=== PATIENT | female | born 1985 | race Caucasian/White ===

== ENCOUNTER 2016-08-25 11:20 | Emergency (ER) | payer OTHER ==
[2016-08-25 12:46] LABS: BASO # 0.1 K/uL (0.0-0.2); BASO % 1.9 % (0.0-2.0); EOS # 0.2 K/uL (0.0-0.7); EOS % 3.3 % (0.0-4.0); HEMATOCRIT 31.6 % (34.0-47.0); LYMPH % 27.8 % (20.0-40.0); MEAN CELL VOLUME 80.3 fL (81.0-99.0); MEAN CORPUSCULAR HEMOGLOBIN 24.8 pg (27.0-31.0); MEAN CORPUSCULAR HGB CONC 30.9 g/dL (33.0-37.0); MEAN PLATELET VOLUME 9.2 fL (7.2-11.7); MONO # 0.9 K/uL (0.0-0.8); MONO % 12.3 % (0.0-10.0); NRBC % 0.1 % (0.0-2.0); RED CELL DISTRIBUTION WIDTH 17.2 % (11.5-14.5); WHITE BLOOD COUNT 7.2 K/uL (4.8-10.8)
--- NOTE | 2016-08-25 12:47 | C.PDOC ---
History Of Present Illness A 30 y/o female with a Hx of kidney stones, c/o left flank pain that began this morning. Pt denies chest pain, SOB, palpitations, abdominal pain, N/V/D, fever, chills, dysuria, hematuria, urinary incontinence, or any other complaints. Time Seen by Provider: 08/25/16 12:05 Chief Complaint (Nursing): Chest Pain History Per: Patient History/Exam Limitations: no limitations Onset/Duration Of Symptoms: Hrs Current Symptoms Are (Timing): Still Present Severity: Mild Quality: "Pain" Associated Symptoms: denies: Nausea, Diaphoresis Alleviating Factors: None Recent travel outside of the [place]: No Additional History Per: Patient Past Medical History Reviewed: Historical Data, Nursing Documentation, Vital Signs Vital Signs: Last Vital Signs Temp 97.9 F 08/25/16 13:22 Pulse 79 08/25/16 14:53 Resp 16 08/25/16 14:53 BP 118/87 08/25/16 14:53 Pulse Ox 98 08/25/16 14:53 - Medical History PMH: HTN, Kidney Stones Surgical History: - [facility] Procedures LOW CERVICAL (08/22/13) Family History: States: Unknown Family Hx - Social History Hx Tobacco Use: No Hx Alcohol Use: No Hx Substance Use: No - Immunization History Hx Tetanus Toxoid Vaccination: Yes Hx Influenza Vaccination: No Hx Pneumococcal Vaccination: Yes Review Of Systems Except As Marked, All Systems Reviewed And Found Negative. Constitutional: Negative for: Fever, Chills Cardiovascular: Negative for: Chest Pain, Palpitations Respiratory: Negative for: Shortness of Breath Gastrointestinal: Negative for: Nausea, Vomiting, Abdominal Pain, Diarrhea Genitourinary: Negative for: Dysuria, Incontinence, Hematuria Musculoskeletal: Positive for: Back Pain (Left flank pain) Physical Exam - Physical Exam Appears: Well, Non-toxic, No Acute Distress Skin: Warm, Dry Head: Atraumatic, Normacephalic Eye(s): bilateral: Normal Inspection Oral Mucosa: Moist Chest: Symmetrical Cardiovascular: Rhythm Regular, No Murmur Respiratory: Normal Breath Sounds, No Accessory Muscle Use, No Rales, No Rhonchi , No Wheezing Gastrointestinal/Abdominal: Soft, No Tenderness Back: CVA Tenderness (Left CVA tenderness) Neurological/Psych: Oriented x3, Normal Speech, Normal Cognition, Other (No focal deficit) Gait: Steady ED Course And Treatment - Laboratory Results Result Diagrams: 08/25/16 12:37 08/25/16 12:37 O2 Sat by Pulse Oximetry: 100 (RA) Pulse Ox Interpretation: Normal Medical Decision Making Medical Decision Making: Impression: A 30 y/o female c/o left flank pain that began this morning Plans: -CT Abd/Pel w/o -Blood labs -UA -Reassess Disposition - Disposition Referrals: Johnny Cedeno MD [Staff Provider] - Disposition: HOME/ ROUTINE Disposition Time: 14:00 Condition: IMPROVED Additional Instructions: Thank you for letting us take care of you today. Your provider was Dr. Chandler. You were treated for kidney stones. The emergency medical care you received today was directed at your acute symptoms. If you were prescribed any medication, please fill it and take as directed. It may take several days for your symptoms to resolve. Return to the Emergency Department if your symptoms worsen, do not improve, or if you have any other problems. Please contact your doctor or call one of the physicians/clinics you have been referred to that are listed on the Patient Visit Information form that is included in your discharge packet. Bring any paperwork you were given at discharge with you along with any medications you are taking to your follow up visit. Our treatment cannot replace ongoing medical care by a primary care provider (PCP) outside of the emergency department. Thank you for allowing the [facility] team to be part of your care today. Follow up with your urologist in 2-3 days for re-evaluation. Prescriptions: Ibuprofen [Motrin] 600 mg PO Q6 PRN #20 tab PRN Reason: Pain, Moderate (4-7) Instructions: Kidney Stones (ED), How to Strain Your Urine (ED) - Clinical Impression Clinical Impression: Kidney stone - Scribe Statement The provider has reviewed the documentation as recorded by the Scribe Oren gillespie All medical record entries made by the Scribe were at my direction and personally dictated by me. I have reviewed the chart and agree that the record accurately reflects my personal performance of the history, physical exam, medical decision making, and the department course for this patient. I have also personally directed, reviewed, and agree with the discharge instructions and disposition.
[2016-08-25 12:51] LABS: RBC URINE 430 /hpf (0-3); URINE BILIRUBIN NEGATIVE (NEGATIVE); URINE BLOOD 3+ (NEGATIVE); URINE COLOR Yellow (YELLOW); URINE GLUCOSE (UA) NORMAL (Normal); URINE KETONE NEGATIVE (NEGATIVE); URINE LEUKOCYTE ESTERASE NEG Leu/uL (Negative); URINE PROTEIN NEGATIVE (NEGATIVE); URINE UROBILINOGEN NORMAL mg/dL (0.2-1.0); WBC URINE 4 /hpf (0-5)
[2016-08-25 12:59] LABS: CHLORIDE 104 mmol/L (98-107); POTASSIUM 3.5 mmol/L (3.6-5.2); SODIUM 138 mmol/L (132-148)
[2016-08-25 13:02] LABS: ALKALINE PHOSPHATASE 53 U/L (38-126); ALT/SGPT 24 U/L (9-52); AST/SGOT 28 U/L (14-36); BILIRUBIN,TOTAL 0.4 mg/dL (0.2-1.3); BLOOD UREA NITROGEN 9 mg/dL (7-17); CALCIUM 8.6 mg/dl (8.6-10.4); CARBON DIOXIDE 24 mmol/L (22-30); GFR AFRICAN-AMERICAN > 60; GLUCOSE,RANDOM 93 mg/dL (65-105); TOTAL PROTEIN 7.5 g/dL (6.3-8.3)
[2016-08-25 13:22] VITALS: RESP 16; TEMP 97.9
--- NOTE | 2016-08-25 14:34 | CT ---
PROCEDURE: CT abdomen and pelvis dated 08/25/2016 HISTORY: Left flank pain COMPARISON: Comparison made with prior study 03/05/2016 TECHNIQUE: Contiguous helical/transaxial images of the abdomen and pelvis. Oral contrast was administered. No IV contrast given. Coronal and Sagittal reformats generated. Radiation dose: Total exam DLP = 331.44 mGy-cm. This CT exam was performed using one or more of the following dose reduction techniques: Automated exposure control, adjustment of the mA and/or kV according to patient size, and/or use of iterative reconstruction technique. . FINDINGS: LOWER THORAX: The lung bases are clear. No infiltrate effusion or basilar pneumothorax. Heart size within range of normal. There appears to be a very tiny hiatal hernia. LIVER: The liver exhibits normal size measuring approximately 15.7 cm in CC dimension. No obvious hepatic mass or collection seen on this noncontrast study. GALLBLADDER AND BILE DUCTS: Gallbladder is incompletely distended. . No obvious intraluminal gallbladder calculi seen. PANCREAS: Appears grossly unremarkable so far as can be seen. Note that the pancreas is poorly delineated due to the lack of circulating intravenous contrast material and adjacent opacified bowel. No gross pancreatic ductal dilatation so far as can be seen. SPLEEN: Spleen exhibits normal size and attenuation pattern. ADRENALS: There are no adrenal lesions. KIDNEYS AND URETERS: Eft kidney is enlarged and somewhat lobulated possibly malrotated. Few tiny bilateral cysts of with of visible on prior studies are not appreciated on this exam due to the lack of circulating intravenous contrast material. Multiple calculi scattered throughout the right renal collecting system ;. And another punctate calcification lateral aspect mid to lower pole on axial image number 74 2 mm posterior cortical calculus upper pole moiety axial image 58 punctate calcification lower pole axial image number 81 2 adjacent calculi upper pole measuring 3.7 and 2.5 best seen on axial series 3, image number 62 ; Punctate the calcification anteromedial upper midpole right kidney image 64 and additional 2.6 mm calculus posterior upper/midpole image number 66 2 in the midpole axial image number 73 measuring 4.1mm 3.5mm and 3.1 mm and 3 additional calculi lower pole measuring 2.5 axial image 81, 1.7mm axial image 82, and 2.8mm axial image number 82 BLADDER: The urinary bladder is physiologically distended. There is punctate calcifications seen along in the region of the expected location of distal left ureter measuring approximately 2.6 mm best seen on axial image number 139 and another tiny calcification which appears to be closer to the left lateral margin of the uterus measuring approximately 2.4 mm seen on axial image number 147 correlation with urinalysis suggested as the possibility of a small distal ureteral calculus cannot be excluded on this exam. REPRODUCTIVE: . Uterus appears grossly unremarkable. APPENDIX: . The appendix is not seen with any certainty on this exam the was visible and appeared unremarkable on the prior study. BOWEL: Evaluation of the bowel is limited due to the lack of oral contrast material. . The stomach is incompletely distended which presumably accounts for thick-walled appearance. Visualized loops of small bowel exhibit normal contour and caliber. No evidence acute mechanical small bowel obstruction. Moderate amount of stool seen throughout the colon suggesting mild fecal retention. PERITONEUM: Unremarkable. No fluid collection. No free air. LYMPH NODES: Unremarkable. No enlarged lymph nodes. VASCULATURE: Unremarkable. No aortic aneurysm. BONES: Osseous structures appear grossly intact. OTHER FINDINGS: None. IMPRESSION: Impression: Somewhat enlarged so that an lobulated left kidney with the several small calculi scattered throughout the mid and lower pole as above. There are small calcifications seen in the left aspect of the pelvis and 2 of which are near where the expected location of distal ureter would be. The possibility of a distal new calculus not excluded. Correlation with urinalysis. No definitive evidence of significant left-sided hydronephrosis. Multiple right renal calculi. See above discussion for additional details and findings. Findings discussed with Dr. Craig at approximately 1:55 p.m. with written down and read back verification.
[2016-08-25 14:54] VITALS: BP 118/87; PULSE 79
[2016-08-25 18:05] VITALS: O2SAT 100
== END 2016-08-25 14:53 | disposition home or self-care (01) ==
LOC: C.ER 11:20
DX: N20.0 Calculus of kidney (principal)

== ENCOUNTER 2017-02-26 12:43 | Emergency (ER) | payer OTHER ==
[2017-02-26 12:52] VITALS: RESP 18; O2SAT 100
[2017-02-26] MEDS ORDERED: Lidocaine 1%/Epinephrine 1:100000 30 ml vial IJ STA (13:36)
[2017-02-26] MEDS ORDERED: Epinephrine /Lidocaine HCL 1:100,000/2% 30 ml INJ ONE (13:43)
[2017-02-26] MEDS ORDERED: Lidocaine 2% w Epi 1:100,000 Inj IJ ONE (13:43)
[2017-02-26] MEDS ORDERED: Bacitracin 500 Units/gm Oint Foilpak UD TOP ONE (14:18)
--- NOTE | 2017-02-26 14:21 | C.PDOC ---
History Of Present Illness HaydeVenancio Chacon is a 31 year old female, with no past medical history, who presents to the emergency department for a laceration on right eyebrow onset prior to arrival. Patient states the "supervisor picking crew" sign at work fell and hit her in the forehead. She denies any other medical complaints. PMD: None provided. Time Seen by Provider: 02/26/17 12:55 Chief Complaint (Nursing): Abnormal Skin Integrity History Per: Patient History/Exam Limitations: no limitations Onset/Duration Of Symptoms: Hrs (prior to arrival) Current Symptoms Are (Timing): Still Present Location Of Injury: Right: Face (right eyebrow) Quality Of Symptoms: Painful Past Medical History Reviewed: Historical Data, Nursing Documentation, Vital Signs Vital Signs: Last Vital Signs Temp 98 F 02/26/17 14:36 Pulse 80 02/26/17 14:36 Resp 18 02/26/17 14:36 BP 144/86 02/26/17 14:36 Pulse Ox 100 02/26/17 14:51 - Medical History PMH: HTN, Kidney Stones, Chronic Kidney Disease Surgical History: - [facility] Procedures LOW CERVICAL (08/22/13) Family History: States: Unknown Family Hx - Social History Hx Tobacco Use: No Hx Alcohol Use: No Hx Substance Use: No - Immunization History Hx Tetanus Toxoid Vaccination: No Hx Influenza Vaccination: No Hx Pneumococcal Vaccination: Yes Review Of Systems Except As Marked, All Systems Reviewed And Found Negative. Skin: Positive for: Other (right eyebrow laceration) Physical Exam - Physical Exam Appears: Well, No Acute Distress Skin: Normal Color, Warm, Dry Head: Atraumatic, Normacephalic, Other (4cm stellate laceration involving forehead, right above the right eyebrow. No gross step-off.) Eye(s): bilateral: Normal Inspection, EOMI Neck: Normal, Normal ROM, Supple Cardiovascular: Rhythm Regular Respiratory: Normal Breath Sounds, No Accessory Muscle Use Gastrointestinal/Abdominal: Normal Exam, Soft, No Tenderness Back: Normal Inspection, No CVA Tenderness Extremity: Normal ROM, No Deformity, No Swelling Neurological/Psych: Oriented x3, Normal Speech ED Course And Treatment O2 Sat by Pulse Oximetry: 100 (RA) Pulse Ox Interpretation: Normal Procedure: Wound Repair - Procedure Procedure: Wound Repair: Laceration repair - Performed by Performed by: Attending Physician - Indications Indication(s):: Laceration - Location Location:: Right, Eyebrow Dimensions Length cm: 4 cm - Anesthetic Technique Anesthetic Technique: Intravenous pain meds Local/Regional Anesthetic:: Lidocaine 2% w/epi - Debris Debris:: None - Irrigated Irrigated with ml of normal saline: 500 ml - Complexity Complexity:: Simple (one layer) - Wound repair method Sutures:: # (x5 5.0, x4 6.0 ), Type (prolene ) - Patient tolerated procedure Patient Tolerated Procedure:: Well Medical Decision Making Medical Decision Making: Initial Impression: Right forehead laceration Initial Plan: --Tetanus 0.5 ml IM --Bacitracin 1 ea --Lidocaine 10 ml Inj --reevaluation --area properly sterilized and anesthetized with 2% lidocaine w/ epi and irrigated with 500ml of normal saline. Used sterile prep x6 5.0 and x4 6.0 prolene sutured placed with good approximation. Bacitracin applied, tetanus administered. Patient tolerated procedure well with no complications. Diagnosis : facial laceration. --Wound check in x2 days and suture removal in x5 days. Disposition Counseled Patient/Family Regarding: Diagnosis, Need For Followup - Disposition Disposition: HOME/ ROUTINE Disposition Time: 14:19 Condition: IMPROVED Additional Instructions: follow up in 2 days for wound check and suture removal in 5 days apply bacitracin twice daily warm water and soap to clean keep dry for 24 hours return to ER if symptoms progress, increase redness or swelling Instructions: Laceration (ED), Facial Laceration (ED) Forms: [facility] (Arabic), Gen Discharge Inst Turkish, [employer] (Turkish) Print Language: YORUBA - Clinical Impression Clinical Impression: Laceration of forehead - Scribe Statement Sundar Sarmiento Provider Attestation: All medical record entries made by the Adonisibshanice were at my direction and personally dictated by me. I have reviewed the chart and agree that the record accurately reflects my personal performance of the history, physical exam, medical decision making, and the department course for this patient. I have also personally directed, reviewed, and agree with the discharge instructions and disposition.
[2017-02-26] MEDS ORDERED: Bacitracin 500 Units/gm Oint Foilpak UD ONE (14:29)
[2017-02-26 14:37] VITALS: BP 144/86; PULSE 80; TEMP 98
== END 2017-02-26 14:36 | disposition home or self-care (01) ==
LOC: C.ER 12:43
DX: S01.81XA Laceration without foreign body of other part of head, initial encounter (principal); W20.8XXA Other cause of strike by thrown, projected or falling object, initial encounter; Y92.89 Other specified places as the place of occurrence of the external cause; Y99.0 Civilian activity done for income or pay; Z23 Encounter for immunization

== ENCOUNTER 2017-03-03 13:19 | Emergency (ER) | payer OTHER ==
[2017-03-03 13:27] VITALS: TEMP 97.8
--- NOTE | 2017-03-03 14:48 | C.PDOC ---
History Of Present Illness FOR SUTURE REMOVAL. S/P LAC REPAIR 02/26. PS HEALING WELL, NO NEW SX SINCE PRIOR VISIT. EXAM NONTOXIC SKIN HEALING SKIN LAC R EYEBROW. NO CELLULITIS, TEND, DC PROC SUTURE REMOVAL 11 BLADE WO DIFF. PT TOLERATED WELL Time Seen by Provider: 03/03/17 14:16 Chief Complaint (Nursing): Suture/Staple Removal History Per: Patient History/Exam Limitations: no limitations Onset/Duration Of Symptoms: Days Ago Past Medical History Reviewed: Historical Data, Nursing Documentation, Vital Signs Vital Signs: Last Vital Signs Temp 97.8 F 03/03/17 13:24 Pulse 68 03/03/17 15:04 Resp 18 03/03/17 15:04 BP 110/68 03/03/17 15:04 Pulse Ox 99 03/03/17 15:04 - Medical History PMH: HTN, Kidney Stones, Chronic Kidney Disease Surgical History: - [facility] Procedures LOW CERVICAL (08/22/13) Family History: States: No Known Family Hx - Social History Hx Tobacco Use: No Hx Alcohol Use: No Hx Substance Use: No - Immunization History Hx Tetanus Toxoid Vaccination: No Hx Influenza Vaccination: No Hx Pneumococcal Vaccination: Yes Review Of Systems Except As Marked, All Systems Reviewed And Found Negative. Constitutional: Negative for: Fever Eyes: Negative for: Pain, Vision Change Gastrointestinal: Negative for: Nausea, Vomiting Physical Exam - Physical Exam Appears: Non-toxic, No Acute Distress Skin: Warm, Dry, No Rash, Other (Healing skin laceration to the right eyebrow. No cellulitis. No tenderness. No discharge.) Head: Atraumatic, Normacephalic Eye(s): bilateral: Normal Inspection, PERRL, EOMI Respiratory: Normal Breath Sounds Extremity: Normal ROM, No Swelling Neurological/Psych: Oriented x3, Normal Speech, Normal Motor ED Course And Treatment O2 Sat by Pulse Oximetry: 100 (RA) Pulse Ox Interpretation: Normal Progress - Data Reviewed Data Reviewed: Old records Disposition Counseled Patient/Family Regarding: Diagnosis, Need For Followup - Disposition Referrals: YOUR,PMD [Other] Disposition: HOME/ ROUTINE Disposition Time: 14:47 Condition: IMPROVED Instructions: Stitches Removal (ED) Forms: [employer] (Italian) - Clinical Impression Clinical Impression: Removal of suture - Scribe Statement The provider has reviewed the documentation as recorded by the Luis Parmar Provider Attestation: All medical record entries made by the Luis were at my direction and personally dictated by me. I have reviewed the chart and agree that the record accurately reflects my personal performance of the history, physical exam, medical decision making, and the department course for this patient. I have also personally directed, reviewed, and agree with the discharge instructions and disposition.
[2017-03-03 15:05] VITALS: BP 110/68; PULSE 68; RESP 18
[2017-03-03 16:06] VITALS: O2SAT 100
== END 2017-03-03 15:05 | disposition home or self-care (01) ==
LOC: C.ER 13:19
DX: Z48.02 Encounter for removal of sutures (principal)

== ENCOUNTER 2017-07-19 11:31 | Emergency (ER) | payer OTHER ==
[2017-07-19 11:55] VITALS: O2SAT 100
[2017-07-19 12:25] LABS: HCG,QUALITATIVE URINE NEGATIVE (NEGATIVE)
[2017-07-19 12:35] LABS: SQUAMOUS EPITHIAL 2 /hpf (0-5); URINE BACTERIA FEW (<OCC); URINE BILIRUBIN NEGATIVE (NEGATIVE); URINE BLOOD 2+ (NEGATIVE); URINE CLARITY Hazy (Clear); URINE COLOR Yellow (YELLOW); URINE GLUCOSE (UA) NORMAL (Normal); URINE LEUKOCYTE ESTERASE 3+ Leu/uL (Negative); URINE PROTEIN 1+ mg/dL (NEGATIVE); URINE UROBILINOGEN NORMAL mg/dL (0.2-1.0)
--- NOTE | 2017-07-19 12:44 | C.PDOC ---
History Of Present Illness 31 year old female, presents to ER with complaints of fever, chills, and bodyaches since last night. Patient also reports right flank pain but denies any dysuria. She denies any nausea, vomiting, diarrhea or constipation. Patient has no other medical complaints. PMD: None Time Seen by Provider: 07/19/17 12:01 Chief Complaint (Nursing): Flu-like Symptoms History Per: Patient History/Exam Limitations: no limitations Onset/Duration Of Symptoms: Days (1) Current Symptoms Are (Timing): Still Present Associated Symptoms: Fever, Chills, Myalgias Additional History Per: Patient Past Medical History Reviewed: Historical Data, Nursing Documentation, Vital Signs Vital Signs: Last Vital Signs Temp 100.1 F H 07/19/17 12:49 Pulse 115 H 07/19/17 12:49 Resp 20 07/19/17 12:49 BP 124/77 07/19/17 12:49 Pulse Ox 100 07/19/17 13:45 - Medical History PMH: Anemia, HTN, Kidney Stones, Chronic Kidney Disease Surgical History: - [facility] Procedures LOW CERVICAL (08/22/13) Family History: States: No Known Family Hx, Unknown Family Hx - Social History Hx Tobacco Use: No Hx Alcohol Use: No Hx Substance Use: No - Immunization History Hx Tetanus Toxoid Vaccination: Yes Hx Influenza Vaccination: No Hx Pneumococcal Vaccination: No Review Of Systems Except As Marked, All Systems Reviewed And Found Negative. Constitutional: Positive for: Fever, Chills, Other (bodyaches) Gastrointestinal: Positive for: Other (right flank pain) Genitourinary: Negative for: Dysuria Physical Exam - Physical Exam Appears: Non-toxic, No Acute Distress Skin: Normal Color, Warm, Dry, No Rash Head: Atraumatic, Normacephalic Eye(s): bilateral: Normal Inspection, PERRL, EOMI Neck: Normal ROM, Supple Chest: Symmetrical Cardiovascular: Rhythm Regular, No Murmur Respiratory: Normal Breath Sounds, No Wheezing Gastrointestinal/Abdominal: Normal Exam, Bowel Sounds, Soft, No Tenderness, No Distention, No Guarding, No Hernia Back: Normal Inspection, No CVA Tenderness Extremity: Bilateral: Atraumatic, Normal Color And Temperature, Normal ROM Neurological/Psych: Oriented x3, Normal Speech Gait: Steady ED Course And Treatment O2 Sat by Pulse Oximetry: 100 (RA) Pulse Ox Interpretation: Normal Medical Decision Making Medical Decision Making: Impression: Fever Plan: * UA, UCG * Influenza Progress: UA shows positive nitrates, WBC and LE. Will send urine culture. Patient further treated with Cipro PO. On re-eval, patient is laying supine covered with blanket. I explained urine results. Her abdomen remains soft. Recommend she drink fluids and will be discharged with Rx Cipro. Patient feels comfortable going home and will be discharged. Patient given follow up instructions. Instructed to return to ER if symptoms worsen or new symptoms arise. Disposition Counseled Patient/Family Regarding: Diagnosis, Need For Followup, Rx Given - Disposition Referrals: [facility] [Outside] [facility] [Outside] [facility] [Outside] Disposition: HOME/ ROUTINE Disposition Time: 12:44 Condition: GOOD Additional Instructions: Take antibiotic twice daily and be sure to finish taking all of antibiotic. Drink plenty of fluids. If urine culture was performed, call back for results in 2-3 days for results to confirm antibiotic is treating UTI well. You may call [phone]. Follow up with your primary medical doctor or clinic in 2-5 days for further evaluation. Return to the emergency department at any time if symptoms persist or worsen. Prescriptions: Ciprofloxacin [Cipro] 1 tab PO BID #14 tab Ibuprofen [Motrin] 1 tab PO TID PRN #30 tab PRN Reason: Pain Instructions: Urinary Tract Infection, Adult (DC) Forms: [facility] (East [place]orese) - POA Present On Arrival: None - Clinical Impression Clinical Impression: UTI (urinary tract infection) - PA / PHARMACY SERVICES REPRESENTATIVE / Resident Statement MD/DO has reviewed & agrees with the documentation as recorded. - Scribe Statement The provider has reviewed the documentation as recorded by the Scribe (Cee Evangelista) Provider Attestation: All medical record entries made by the Adonisibe were at my direction and personally dictated by me. I have reviewed the chart and agree that the record accurately reflects my personal performance of the history, physical exam, medical decision making, and the department course for this patient. I have also personally directed, reviewed, and agree with the discharge instructions and disposition.
[2017-07-19 12:50] VITALS: BP 124/77; PULSE 115; RESP 20; TEMP 100.1
== END 2017-07-19 13:02 | disposition home or self-care (01) ==
LOC: C.ER 11:31
DX: N39.0 Urinary tract infection, site not specified (principal)

== ENCOUNTER 2017-07-21 15:12 | Inpatient (IN) | payer OTHER ==
[2017-07-21] MEDS ORDERED: Sodium Chloride 0.9% 1,000 ML IV ONE (16:14)
[2017-07-21] MEDS ORDERED: Sodium Chloride 0.9% 0 ML ONE (16:29)
[2017-07-21] MEDS ORDERED: Sodium Chloride 0.9% 1,000 ML ONE (16:39)
[2017-07-21 16:54] LABS: BASO # 0.1 K/uL (0.0-0.2); BASO % 0.6 % (0.0-2.0); EOS # 0.1 K/uL (0.0-0.7); EOS % 0.7 % (0.0-4.0); HEMOGLOBIN 10.2 g/dL (11.0-16.0); LYMPH # 1.1 K/uL (1.0-4.3); LYMPH % 6.8 % (20.0-40.0); MEAN CELL VOLUME 80.5 fL (81.0-99.0); MEAN CORPUSCULAR HEMOGLOBIN 26.3 pg (27.0-31.0); MEAN CORPUSCULAR HGB CONC 32.7 g/dL (33.0-37.0); MEAN PLATELET VOLUME 9.1 fL (7.2-11.7); MONO # 2.3 K/uL (0.0-0.8); MONO % 13.7 % (0.0-10.0); NEUT # 13.1 K/uL (1.8-7.0); NEUT % 78.2 % (50.0-75.0); PLATELET COUNT 313 K/uL (130-400); RBC 3.87 Mil/uL (3.80-5.20); RED CELL DISTRIBUTION WIDTH 18.7 % (11.5-14.5); WHITE BLOOD COUNT 16.7 K/uL (4.8-10.8)
[2017-07-21 16:57] LABS: SQUAMOUS EPITHIAL 2 /hpf (0-5); URINE BACTERIA FEW (<OCC); URINE BILIRUBIN NEGATIVE (NEGATIVE); URINE BLOOD 2+ (NEGATIVE); URINE CLARITY Hazy (Clear); URINE COLOR Yellow (YELLOW); URINE GLUCOSE (UA) NORMAL (Normal); URINE LEUKOCYTE ESTERASE 3+ Leu/uL (Negative); URINE PROTEIN 2+ mg/dL (NEGATIVE); URINE UROBILINOGEN NORMAL mg/dL (0.2-1.0)
[2017-07-21] MEDS ORDERED: Meropenem 1 GM in Sodium Chloride 0.9% 100 ML IVPB SCH (17:00)
[2017-07-21 17:03] LABS: HCG,QUALITATIVE URINE NEGATIVE (NEGATIVE)
[2017-07-21 17:06] LABS: CALCIUM 9.3 mg/dl (8.6-10.4)
--- NOTE | 2017-07-21 17:06 | C.PDOC ---
History Of Present Illness 31 y/o female with history of kidney stones presents to ED with c/o of persistent right flank pain, fever and chills. Patient was seen at ED 2 days ago and was called earlier today for +blood culture for ESBL and was told to come back to ED for IV antibiotics. Patient states she has been compliant with antibiotics given 2 days ago but still has symptoms and developed fever yesterday. Patient denies vaginal discharge, dysuria, vaginal bleeding or any other complaints at this time. Time Seen by Provider: 07/21/17 15:47 Chief Complaint (Nursing): Female Genitourinary History Per: Patient History/Exam Limitations: no limitations Onset/Duration Of Symptoms: Days Current Symptoms Are (Timing): Still Present Past Medical History Reviewed: Historical Data, Nursing Documentation, Vital Signs Vital Signs: Last Vital Signs Temp 101.2 F H 07/21/17 18:38 Pulse 95 H 07/21/17 18:38 Resp 17 07/21/17 18:38 BP 121/73 07/21/17 18:38 Pulse Ox 99 07/21/17 18:38 - Medical History PMH: Anemia, HTN, Kidney Stones, Chronic Kidney Disease Surgical History: - [facility] Procedures LOW CERVICAL (08/22/13) Family History: States: No Known Family Hx - Social History Hx Tobacco Use: No Hx Alcohol Use: No Hx Substance Use: No - Immunization History Hx Tetanus Toxoid Vaccination: Yes Hx Influenza Vaccination: No Hx Pneumococcal Vaccination: No Review Of Systems Constitutional: Positive for: Fever, Chills Gastrointestinal: Positive for: Other (flank pain). Negative for: Nausea, Vomiting Genitourinary: Negative for: Dysuria, Hematuria, Vaginal Discharge Musculoskeletal: Negative for: Back Pain Physical Exam - Physical Exam Appears: Non-toxic, No Acute Distress Skin: Warm, Dry, No Rash Head: Atraumatic, Normacephalic Eye(s): bilateral: Normal Inspection Oral Mucosa: Moist Neck: Normal ROM, Supple Cardiovascular: Rhythm Regular Respiratory: Normal Breath Sounds, No Rales, No Rhonchi, No Wheezing Gastrointestinal/Abdominal: Soft, No Tenderness, No Guarding, No Rebound Back: CVA Tenderness (Mild), No Vertebral Tenderness, No Paraspinal Tenderness Neurological/Psych: Oriented x3, Normal Speech, Normal Cognition, Normal Motor, Normal Sensation ED Course And Treatment - Laboratory Results Result Diagrams: 07/21/17 16:51 07/21/17 16:51 O2 Sat by Pulse Oximetry: 100 (RA) Pulse Ox Interpretation: Normal Medical Decision Making Medical Decision Making: Progress: 1757: D/w Dr. Plascencia accepted patient under her service for IV antibiotics with Dr. Jules on consult Disposition Discussed With DrLola: Lia Plascencia Counseled Patient/Family Regarding: Studies Performed, Diagnosis - Disposition Disposition: HOSPITALIZED Disposition Time: 17:57 Condition: STABLE - Clinical Impression Clinical Impression: Pyelonephritis, Infection due to ESBL-producing Escherichia coli - Scribe Statement The provider has reviewed the documentation as recorded by the Scribe Arvind Quarles All medical record entries made by the Scribe were at my direction and personally dictated by me. I have reviewed the chart and agree that the record accurately reflects my personal performance of the history, physical exam, medical decision making, and the department course for this patient. I have also personally directed, reviewed, and agree with the discharge instructions and disposition. Decision To Admit - Pt Status Changed To: Hospital Disposition Of: Inpatient - Admit Certification Admit to Inpatient:: After my assessment, the patient will require hospitalization for at least two midnights. This is because of the severity of symptoms shown, intensity of services needed, and/or the medical risk in this patient being treated as an outpatient. - InPatient: Physician Admission Certification: I certify that this patient requires 2 or more midnights of care for the following reason:: esbl positive e coli infection , requiring IV antibiotics - . Bed Request Type: Regular Patient Diagnosis: Pyelonephritis, Infection due to ESBL-producing Escherichia coli
[2017-07-21 17:58] LABS: BANDS 15 % (0-2); EOSINOPHIL 1 % (0-4); LYMPHOCYTE 7 % (20-40); MONOCYTE 10 % (0-10); MYELOCYTE 1 % (0-0); NEUTROPHIL 66 % (50-75); TOTAL CELLS COUNTED 100
[2017-07-21 17:59] LABS: BURR CELLS SLIGHT; HYPOCHROMIC SLIGHT; PLATELET ESTIMATE NORMAL (NORMAL)
[2017-07-21 18:00] LABS: LARGE PLATELETS PRESENT
[2017-07-21 18:38] LABS: VENOUS BLOOD GAS BASE EXCESS -5.9 mmol/L (0.0-2.0); VENOUS BLOOD GAS PCO2 41 mmHg (40-60); VENOUS BLOOD GAS PO2 25 mm/Hg (30-55)
--- NOTE | 2017-07-21 19:01 | CP.PCM.CON ---
History of Present Illness - History of Present Illness History of Present Illness: admitted with pyelo/ ESBL Urine started Merrem Needs eval 31 y/o female with history of kidney stones presents to ED with c/o of persistent right flank pain, fever and chills. Patient was seen at ED 2 days ago and was called earlier today for +blood culture for ESBL and was told to come back to ED for IV antibiotics. Patient states she has been compliant with antibiotics given 2 days ago but still has symptoms and developed fever yesterday. Patient denies vaginal discharge, dysuria, vaginal bleeding or any other complaints at this time. - Medical History PMH: Anemia, HTN, Kidney Stones, Chronic Kidney Disease Surgical History: Past Patient History - Past Social History Smoking Status: Never Smoked - CARDIAC Hx Hypertension: Yes - RENAL Hx Chronic Kidney Disease: Yes Hx Kidney Stones: Yes - HEMATOLOGICAL/ONCOLOGICAL Hx Anemia: Yes - GENITOURINARY/GYNECOLOGICAL Other/Comment: kidney stones - PSYCHIATRIC Hx Substance Use: No - SURGICAL HISTORY Hx Surgeries: Yes Hx Section: Yes (2x) - ANESTHESIA Hx Anesthesia: Yes Hx Anesthesia Reactions: No Meds Allergies/Adverse Reactions: Allergies Allergy/AdvReac Type Severity Reaction Status Date / Time No Known Allergies Allergy Verified 07/21/17 15:38 - Medications Medications: Current Medications Meropenem 1 gm/ Sodium (Chloride) 100 mls @ 100 mls/hr IVPB Q8H CORINNE PRN Reason: Protocol Last Admin: 07/21/17 17:50 Dose: 100 mls/hr Meropenem 1 gm/ Sodium (Chloride) 100 mls @ 100 mls/hr IVPB Q8 CORINNE PRN Reason: Protocol Results - Vital Signs Recent Vital Signs: Last Vital Signs Temp 101.2 F H 07/21/17 18:38 Pulse 95 H 07/21/17 18:38 Resp 17 07/21/17 18:38 BP 121/73 07/21/17 18:38 Pulse Ox 100 07/21/17 18:49 - Labs Result Diagrams: 07/21/17 16:51 07/21/17 16:51 Labs: Laboratory Results - last 24 hr 07/21/17 07/21/17 07/21/17 16:39 16:51 16:51 WBC 16.7 H D RBC 3.87 Hgb 10.2 L Hct 31.2 L MCV 80.5 L MCH 26.3 L MCHC 32.7 L RDW 18.7 H Plt Count 313 MPV 9.1 Neut % (Auto) 78.2 H Lymph % (Auto) 6.8 L [place] % (Auto) 13.7 H Eos % (Auto) 0.7 Baso % (Auto) 0.6 Neut # (Auto) 13.1 H Lymph # (Auto) 1.1 [place] # (Auto) 2.3 H Eos # (Auto) 0.1 Baso # (Auto) 0.1 Neutrophils % (Manual) 66 Band Neutrophils % 15 H* Lymphocytes % (Manual) 7 L Monocytes % (Manual) 10 Eosinophils % (Manual) 1 Myelocytes % 1 H Platelet Estimate Normal Large Platelets Present Hypochromasia (manual) Slight [place] Cells Slight pO2 VBG pH VBG pCO2 VBG HCO3 VBG Total CO2 VBG O2 Sat (Calc) VBG Base Excess VBG Potassium Glucose Lactate Sodium 142 Potassium 4.1 Chloride 107 Carbon Dioxide 21 L Anion Gap 19 BUN 16 Creatinine 1.3 H Est GFR ( Amer) 58 Est GFR (Non-Af Amer) 48 Random Glucose 90 Calcium 9.3 Venous Blood Potassium Urine Color Yellow Urine Clarity Hazy Urine pH 5.0 Ur Specific [place] 1.013 Urine Protein 2+ H Urine Glucose (UA) Normal Urine Ketones Negative Urine Blood 2+ H Urine Nitrate Negative Urine Bilirubin Negative Urine Urobilinogen Normal Ur Leukocyte Esterase 3+ H Urine WBC (Auto) 59 H Urine RBC (Auto) 26 H Ur Squamous Epith Cells 2 Urine Bacteria Few H Urine HCG, Qual Negative 07/21/17 18:34 WBC RBC Hgb Hct MCV MCH MCHC RDW Plt Count MPV Neut % (Auto) Lymph % (Auto) [place] % (Auto) Eos % (Auto) Baso % (Auto) Neut # (Auto) Lymph # (Auto) [place] # (Auto) Eos # (Auto) Baso # (Auto) Neutrophils % (Manual) Band Neutrophils % Lymphocytes % (Manual) Monocytes % (Manual) Eosinophils % (Manual) Myelocytes % Platelet Estimate Large Platelets Hypochromasia (manual) [place] Cells pO2 25 L VBG pH 7.30 L VBG pCO2 41 VBG HCO3 18.7 VBG Total CO2 21.5 L VBG O2 Sat (Calc) 44.7 VBG Base Excess -5.9 L VBG Potassium 3.0 L Glucose 60 L Lactate 1.8 Sodium 145.0 Potassium Chloride 114.0 H Carbon Dioxide Anion Gap BUN Creatinine Est GFR ( Amer) Est GFR (Non-Af Amer) Random Glucose Calcium Venous Blood Potassium 3.0 L Urine Color Urine Clarity Urine pH Ur Specific [place] Urine Protein Urine Glucose (UA) Urine Ketones Urine Blood Urine Nitrate Urine Bilirubin Urine Urobilinogen Ur Leukocyte Esterase Urine WBC (Auto) Urine RBC (Auto) Ur Squamous Epith Cells Urine Bacteria Urine HCG, Qual
--- NOTE | 2017-07-21 19:02 | CT ---
PROCEDURE: CT Abdomen and Pelvis without intravenous contrast HISTORY: right flank pain COMPARISON: Noncontrast abdomen and pelvis CT 03/22/2017. TECHNIQUE: Helical CT of the abdomen and pelvis was performed without oral or intravenous contrast as per referring physician request. Contrast dose: None Radiation dose: Total exam DLP = 253.67 mGy-cm. This CT exam was performed using one or more of the following dose reduction techniques: Automated exposure control, adjustment of the mA and/or kV according to patient size, and/or use of iterative reconstruction technique. FINDINGS: LOWER THORAX: Unremarkable. LIVER: Unremarkable. No gross lesion or ductal dilatation. GALLBLADDER AND BILE DUCTS: Unremarkable. PANCREAS: Unremarkable. No gross lesion or ductal dilatation. SPLEEN: Unremarkable. ADRENALS: Unremarkable. No mass. KIDNEYS AND URETERS: Mild streaky right perinephric changes are appreciate without definite right hydronephrosis or hydroureter. No radiodense urolithiasis is seen involving the right ureter and has not been expelled into the urinary bladder either. Multiple punctate intrarenal calculi identified at the upper mid lower pole right kidney once again with the largest identified at the midpole posteriorly measuring 3.8 mm greatest dimension. None are seen at the left kidney once again. Consider potential nephritis right kidney or expelled right-sided obstructing calculus including from the urinary bladder. A tiny exophytic focus is seen related to the left kidney midpole laterally, too small to characterize. VASCULATURE: Unremarkable. No aortic aneurysm. BOWEL: Unremarkable. No obstruction. No gross mural thickening. APPENDIX: Normal appendix. PERITONEUM: Unremarkable. No free fluid. No free air. LYMPH NODES: Unremarkable. No enlarged lymph nodes. BLADDER: Unremarkable. REPRODUCTIVE: Unremarkable. BONES: No acute fracture. OTHER FINDINGS: None. IMPRESSION: No definitive hydronephrosis bilaterally although multiple punctate intrarenal calculi are scattered throughout the right kidney once again. Limited right perinephric reaction may indicate infectious or inflammatory nephritis nevertheless and clinical correlation is advised. None is seen at the left. Consider potential expelled obstructing right-sided calculus including from the urinary bladder. A tiny lucency is seen exophytic off the midpole left kidney too small to characterize once again.
[2017-07-21] MEDS ORDERED: Sodium Chloride 0.45% 1,000 ML IV SCH (23:45)
[2017-07-22 00:45] VITALS: BP 116/76; PULSE 83; RESP 20; TEMP 98.3; O2SAT 100
[2017-07-22] MEDS ORDERED: Meropenem 1 GM in Sodium Chloride 0.9% 100 ML IVPB SCH (22:00)
== END 2017-07-22 01:20 | disposition left against medical advice (07) | DRG 323 ==
LOC: C.ER 15:12 → C.5S 17:59 → C.9E 17:59
PROVIDERS: ADMIT Internal Medicine; ATTEND Internal Medicine
DX: N11.1 Chronic obstructive pyelonephritis (principal); N18.9 Chronic kidney disease, unspecified; B96.20 Unspecified Escherichia coli [E. coli] as the cause of diseases classified elsewhere; I12.9 Hypertensive chronic kidney disease with stage 1 through stage 4 chronic kidney disease, or unspecified chronic kidney disease

== ENCOUNTER 2017-07-22 08:26 | Inpatient (IN) | payer OTHER ==
[2017-07-22 08:31] VITALS: BMI 29.2
[2017-07-22 08:37] VITALS: O2SAT 100
[2017-07-22] MEDS ORDERED: Meropenem 1 GM in Sodium Chloride 0.9% 100 ML IVPB STA (08:55)
--- NOTE | 2017-07-22 09:04 | C.PDOC ---
History Of Present Illness Patient is a 31 y/o female who presents to the ED returning to ER for IV antibiotics for pyelonephritis and infected kidney stone. Patient was admitted yesterday for symptoms under Dr. Plascencia and was started on IV antibiotics because urine culture was positive for ESBL E. coli. Patient reports leaving hospital yesterday because her friend who took her to ED was visiting patient from the [place] and could not stay the night, having no other place to stay. Patient admits symptoms improved after first dose of antibiotics yesterday; denies any fever. Time Seen by Provider: 07/22/17 08:29 Chief Complaint (Nursing): Medical Clearance History Per: Patient History/Exam Limitations: no limitations Onset/Duration Of Symptoms: Hrs Current Symptoms Are (Timing): Still Present Reports Recently: Hospitalized (yesterday) Recent travel outside of the [place]: No Past Medical History Reviewed: Historical Data, Nursing Documentation, Vital Signs Vital Signs: Last Vital Signs Temp 97.5 F L 07/22/17 08:35 Pulse 92 H 07/22/17 08:35 Resp 18 07/22/17 08:35 BP 141/83 07/22/17 08:35 Pulse Ox 100 07/22/17 09:04 - Medical History PMH: Anemia, HTN, Kidney Stones, Chronic Kidney Disease Surgical History: - [facility] Procedures LOW CERVICAL (08/22/13) Family History: States: Unknown Family Hx - Social History Hx Tobacco Use: No Hx Alcohol Use: No Hx Substance Use: No - Immunization History Hx Tetanus Toxoid Vaccination: Yes Hx Influenza Vaccination: No Hx Pneumococcal Vaccination: No Review Of Systems Except As Marked, All Systems Reviewed And Found Negative. Genitourinary: Positive for: Other (pyelonephritis, infected kidney stone; positive ESBL E. coli in urine culture) Physical Exam - Physical Exam Appears: Well, Non-toxic, No Acute Distress Skin: Normal Color, Warm, Dry Head: Atraumatic, Normacephalic Eye(s): bilateral: Normal Inspection Oral Mucosa: Moist Chest: Symmetrical Cardiovascular: Rhythm Regular, No Murmur Respiratory: Normal Breath Sounds, No Rales, No Rhonchi, No Wheezing Gastrointestinal/Abdominal: Soft, No Tenderness, No Guarding, No Rebound Back: Normal Inspection, No CVA Tenderness Extremity: Normal ROM (x4), No Tenderness Neurological/Psych: Oriented x3, Normal Speech, Normal Cognition ED Course And Treatment O2 Sat by Pulse Oximetry: 100 Progress Note: Blood work and UA ordered. IV fluids administered. Disposition - Disposition Forms: [facility] (Tajik) - Scribe Statement The provider has reviewed the documentation as recorded by the Scribe Zee Davis All medical record entries made by the Scribe were at my direction and personally dictated by me. I have reviewed the chart and agree that the record accurately reflects my personal performance of the history, physical exam, medical decision making, and the department course for this patient. I have also personally directed, reviewed, and agree with the discharge instructions and disposition.
[2017-07-22 09:28] LABS: BASO # 0.1 K/uL (0.0-0.2); BASO % 0.5 % (0.0-2.0); EOS # 0.1 K/uL (0.0-0.7); EOS % 0.8 % (0.0-4.0); HEMOGLOBIN 10.2 g/dL (11.0-16.0); LYMPH # 0.9 K/uL (1.0-4.3); LYMPH % 8.2 % (20.0-40.0); MEAN CELL VOLUME 80.1 fL (81.0-99.0); MEAN CORPUSCULAR HEMOGLOBIN 26.4 pg (27.0-31.0); MEAN CORPUSCULAR HGB CONC 32.9 g/dL (33.0-37.0); MEAN PLATELET VOLUME 9.4 fL (7.2-11.7); MONO # 1.5 K/uL (0.0-0.8); NEUT # 8.9 K/uL (1.8-7.0); NEUT % 77.5 % (50.0-75.0); PLATELET COUNT 329 K/uL (130-400); RBC 3.87 Mil/uL (3.80-5.20); RED CELL DISTRIBUTION WIDTH 18.5 % (11.5-14.5); WHITE BLOOD COUNT 11.5 K/uL (4.8-10.8)
[2017-07-22 09:35] LABS: SQUAMOUS EPITHIAL 13 /hpf (0-5); URINE BACTERIA RARE (<OCC); URINE BILIRUBIN NEGATIVE (NEGATIVE); URINE BLOOD 1+ (NEGATIVE); URINE CLARITY Clear (Clear); URINE COLOR Yellow (YELLOW); URINE GLUCOSE (UA) NORMAL (Normal); URINE LEUKOCYTE ESTERASE 3+ Leu/uL (Negative); URINE PROTEIN 1+ mg/dL (NEGATIVE); URINE UROBILINOGEN NORMAL mg/dL (0.2-1.0)
[2017-07-22 09:42] LABS: ALB/GLOB RATIO 0.8 (1.0-2.1); ALBUMIN 3.4 g/dL (3.5-5.0); ALT/SGPT 42 U/L (9-52); AST/SGOT 62 U/L (14-36); BLOOD UREA NITROGEN 12 mg/dL (7-17); CALCIUM 9.3 mg/dl (8.6-10.4); GFR AFRICAN-AMERICAN > 60; GFR NON-AFRICAN AMERICAN 58
[2017-07-22 10:04] LABS: ANISOCYTOSIS MODERATE; BANDS 8 % (0-2); BASOPHIL 2 % (0-2); LYMPHOCYTE 8 % (20-40); MONOCYTE 4 % (0-10); NEUTROPHIL 77 % (50-75); PLATELET ESTIMATE NORMAL (NORMAL); REACTIVE LYMPHOCYTES 1 % (0-0); TOTAL CELLS COUNTED 100
[2017-07-22 10:05] LABS: HYPOCHROMIC SLIGHT
[2017-07-22 11:20] VITALS: RESP 20
[2017-07-22 15:49] VITALS: BP 136/72; PULSE 97; TEMP 98.3
--- NOTE | 2017-07-22 17:48 | US ---
PROCEDURE: Ultrasound of the Kidneys HISTORY: pyelonephritis COMPARISON: July 21, 2017. CT abdomen and pelvis. Summary of findings on the comparison examination:.No definitive hydronephrosis bilaterally although multiple punctate intrarenal calculi are scattered throughout the right kidney once again. Limited right perinephric reaction may indicate infectious or inflammatory nephritis nevertheless and clinical correlation is advised. TECHNIQUE: Sonogram of the kidneys. FINDINGS: RIGHT KIDNEY: Measures: 5 x 5.4 x 11.9 cm. Normal in size, contour and echogenicity. 1. Echogenic focus upper pole 3.3 mm. 2. Echogenic focus 7 mm midpole region. 3. Echogenic focus lower pole 3 mm. 4. Echogenic focus mid pole region 4 mm. Incidental finding(s): Three small simple cysts. Lower pole cyst 5 x 8 mm. Adjacent lower pole cyst 6 x 10 mm. Upper pole cyst 5 x 7 mm. LEFT KIDNEY: Measures: 5.9 x 4.6 x 12.9 cm. Normal in size, contour and echogenicity. Multiple (3) echogenic foci none larger than 4 mm scattered throughout the left kidney consistent with nonobstructing calculi. Incidental finding(s): OTHER FINDINGS: None. IMPRESSION: No evidence of obstructive uropathy. Bilateral nephrolithiasis. Additional benign and/or incidental findings described above.
[2017-07-22] MEDS ORDERED: Meropenem 1 GM in Sodium Chloride 0.9% 100 ML IVPB SCH ×2 (18:00→22:00)
--- NOTE | 2017-07-22 20:53 | CP.PCM.CON ---
History of Present Illness - History of Present Illness History of Present Illness: 31 y/o female who presents to the ED returning to ER for IV antibiotics for pyelonephritis and infected kidney stone. Patient was admitted yesterday for symptoms under Dr. Plascencia and was started on IV antibiotics because urine culture was positive for ESBL E. coli. Patient reports leaving hospital yesterday because her friend who took her to ED was visiting patient from the [place] and could not stay the night, having no other place to stay. Patient admits symptoms improved after first dose of antibiotics yesterday; denies any fever. - Medical History PMH: Anemia, HTN, Kidney Stones, Chronic Kidney Disease Review of Systems - Review of Systems All systems: reviewed and no additional remarkable complaints except - Constitutional Constitutional: As Per HPI - EENT Eyes: absent: As Per HPI, Blind Spots, Blurred Vision, Change in Vision, Decreased Night Vision, Diplopia, Discharge, Dry Eye, Exophthalmos, Floaters, Irritation, Itchy Eyes, Loss of Peripheral Vision, Pain, Photophobia, Requires Corrective Lenses, Sees Flashes, Spots in Vision, Tunnel Vision, Other Visual Disturbances, Loss of Vision, Other Ears: absent: As Per HPI, Decreased Hearing, Ear Discharge, Ear Pain, Tinnitus, Abnormal Hearing, Disequilibrium, Dizziness, Other Nose/Mouth/Throat: absent: As Per HPI, Epistaxis, Nasal Congestion, Nasal Discharge, Nasal Obstruction, Nasal Trauma, Nose Pain, Post Nasal Drip, Sinus Pain, Sinus Pressure, Bleeding Gums, Change in Voice, Dental Pain, Dry Mouth, Dysphagia, Halitosis, Hoarsness, Lip Swelling, Mouth Lesions, Mouth Pain, Odynophagia, Sore Throat, Throat Swelling, Tongue Swelling, Facial Pain, Neck Pain, Neck Mass, Other - Breasts Breasts: absent: As Per HPI, Change in Shape, Mass, Pain, Nipple Discharge, Nipple Inversion, Skin Changes, Swelling, Other - Cardiovascular Cardiovascular: absent: As Per HPI, Acrocyanosis, Chest Pain, Chest Pain at Rest , Chest Pain with Activity, Claudication, Diaphoresis, Dyspnea, Dyspnea on Exertion, Edema, Irregular Heart Rhythm, Pain Radiating to Arm/Neck/Jaw, Leg Edema, Leg Ulcers, Lightheadedness, Orthopnea, Palpitations, Paroxysmal Nocturnal Dyspnea, Pedal Edema, Radiating Pain, Rapid Heart Rate, Slow Heart Rate, Syncope, Other - Respiratory Respiratory: absent: As Per HPI, Cough, Dyspnea, Hemoptysis, Dyspnea on Exertion , Wheezing, Snoring, Stridor, Pain on Inspiration, Chest Congestion, Excessive Mucous Production, Change in Mucous Color, Pain with Coughing, Other - Gastrointestinal Gastrointestinal: absent: As Per HPI, Abdominal Pain, Belching, Bloating, Change in Bowel Habits, Change in Stool Character, Coffee Ground Emesis, Constipation, Cramping, Diarrhea, Dyspepsia, Dysphagia, Early Satiety, Excessive Flatus, Fecal Incontinence, Heartburn, Hematemesis, Hematochezia, Loose Stools, Melena, Nausea, Odynophagia, Temesmus, Vomiting, Other - Genitourinary Genitourinary: As Per HPI - Reproductive: Female Reproductive:Female: absent: As Per HPI, Amenorrhea, Amenorrhea/ Control, Currently Menstual, Cycle <21 Days, Cycle >35 Days, Cycle Variable, Menses 1-7 Days, Menses >/= 8 Days, Menses Variable, Cycle > 4 Weeks Between, No Menses for 6 Months, Heavy Menses, Light Menses, Normal Menses, Spotting Between Cycles , S/P Hysterectomy, Menopausal, Post Menopausal, Premenarche, Abnormal Vaginal Bleeding, Dysmenorrhea, Dyspareunia, Genital Lesions, Genital Pruritis, Pelvic Pain, Prolapse Symptoms, Sexual Dysfunction, Vaginal Discharge, Vaginal Dryness , Vaginal Odor, Vaginal Pruritis, Other - Menstruation Menstruation: absent: As Per HPI, Amenorrhea, Amenorrhea/ Control, Currently Menstual, Cycle <21 Days, Cycle >35 Days, Cycle Variable, Menses 1-7 Days, Menses >/= 8 Days, Menses Variable, Cycle > 4 Weeks Between, No Menses for 6 Months, Heavy Menses, Light Menses, Normal Menses, Spotting Between Cycles , S/P Hysterectomy, Menopausal, Post Menopausal, Premenarche, Abnormal Vaginal Bleeding, Dysmenorrhea, Other - Musculoskeletal Musculoskeletal: absent: As Per HPI, Abnormal Gait, Arthralgias, Atrophy, Back Pain, Deformity, Joint Swelling, Limited Range of Motion, Loss of Height, Muscle Cramps, Muscle Weakness, Myalgias, Neck Pain, Numbness, Radiating Pain into Limb, Stiffness, Tingling, Other - Integumentary Integumentary: absent: As Per HPI, Acne, Alopecia, Bleeding Lesions, Change in Hair, Change in Nails, Change in Pigmentation, Changing Lesions, Dry Skin, Erythema, Furuncle, Hirsutism, Lesions, New Lesions, Non-Healing Lesions, Photosensitivity, Pruritus, Rash, Skin Pain, Skin Ulcer, Sores, Striae, Swelling , Unusual Bruising, Wounds, Jaundice, Other - Neurological Neurological: absent: As Per HPI, Abnormal Gait, Abnormal Hearing, Abnormal Movements, Abnormal Speech, Behavioral Changes, Burning Sensations, Confusion, Convulsions, Disequilibrium, Dizziness, Numbness, Focal Weakness, Frequent Falls , Headaches, Lack of Coordination, Loss of Vision, Memory Loss, Paresthesias, Radicular Pain, Restless Legs, Sensory Deficit, Syncope, Tingling, Tremor, Vertigo, Weakness, Other Visual Disturbances, Other - Psychiatric Psychiatric: absent: As Per HPI, Abnormal Sleep Pattern, Anhedonia, Anxiety, Auditory Hallucinations, Behavioral Changes, Change in Appetite, Change in Libido, Confusion, Depression, Difficulty Concentrating, Hallucinations, Homicidal Ideation, Hopelessness, Irritability, Memory Loss, Mood Swings, Panic Attacks, Paranoia, Suicidal Ideation, Visual Hallucinations, Tactile Hallucinations, Other - Endocrine Endocrine: absent: As Per HPI, Change in Body Appearance, Change in Libido, Cold Intolorance, Deepening of Voice, Excessive Sweating, Fatigue, Flushing, Heat Intolorance, Increase in Ring/Shoe/Hat Size, Palpitations, Polydipsia, Polyphagia, Polyuria, Other - Hematologic/Lymphatic Hematologic: absent: As Per HPI, Easy Bleeding, Easy Bruising, Lymphadenopathy, Other Past Patient History - Past Medical History & Family History Past Medical History?: Yes - Past Social History Smoking Status: Never Smoked - CARDIAC Hx Cardiac Disorders: Yes Hx Hypertension: Yes - PULMONARY Hx Respiratory Disorders: No - NEUROLOGICAL Hx Neurological Disorder: No - HEENT Hx HEENT Problems: No - RENAL Hx Chronic Kidney Disease: Yes Hx Kidney Stones: Yes - ENDOCRINE/METABOLIC Hx Endocrine Disorders: No - HEMATOLOGICAL/ONCOLOGICAL Hx Anemia: Yes - INTEGUMENTARY Hx Dermatological Problems: No - MUSCULOSKELETAL/RHEUMATOLOGICAL Hx Musculoskeletal Disorders: No Hx Falls: No - GASTROINTESTINAL Hx Gastrointestinal Disorders: No - GENITOURINARY/GYNECOLOGICAL Hx Genitourinary Disorders: No Other/Comment: kidney stones - PSYCHIATRIC Hx Psychophysiologic Disorder: No Hx Substance Use: No - SURGICAL HISTORY Hx Surgeries: Yes Hx Section: Yes (2x) - ANESTHESIA Hx Anesthesia: Yes Hx Anesthesia Reactions: No Hx Malignant Hyperthermia: No Has any member of the family had a problem w/ anesthesia?: No Meds Allergies/Adverse Reactions: Allergies Allergy/AdvReac Type Severity Reaction Status Date / Time No Known Allergies Allergy Verified 07/22/17 08:39 - Medications Medications: Current Medications Meropenem 1 gm/ Sodium (Chloride) 100 mls @ 100 mls/hr IVPB Q8H CORINNE PRN Reason: Protocol Last Admin: 07/22/17 18:09 Dose: 100 mls/hr Physical Exam - Constitutional Appears: Non-toxic, Chronically Ill - Head Exam Head Exam: NORMOCEPHALIC - Eye Exam Eye Exam: PERRL - ENT Exam ENT Exam: Mucous Membranes Dry - Neck Exam Neck exam: Negative for: Lymphadenopathy - Respiratory Exam Respiratory Exam: Decreased Breath Sounds - Cardiovascular Exam Cardiovascular Exam: REGULAR RHYTHM - GI/Abdominal Exam GI & Abdominal Exam: Diminished Bowel Sounds - Rectal Exam Rectal Exam: Deferred - Exam Exam: NORMAL INSPECTION - Extremities Exam Extremities exam: Negative for: pedal edema - Back Exam Back exam: CVA tenderness (R). absent: CVA tenderness (L), paraspinal tenderness - Neurological Exam Neurological exam: Alert, CN II-XII Intact, Oriented x3, Reflexes Normal - Psychiatric Exam Psychiatric exam: Normal Mood - Skin Skin Exam: Dry Results - Vital Signs Recent Vital Signs: Last Vital Signs Temp 98.3 F 07/22/17 15:20 Pulse 97 H 07/22/17 15:20 Resp 20 07/22/17 15:20 BP 136/72 07/22/17 15:20 Pulse Ox 100 07/22/17 15:20 - Labs Result Diagrams: 07/22/17 09:12 07/22/17 09:12 Labs: Laboratory Results - last 24 hr 07/22/17 07/22/17 07/22/17 09:12 09:12 09:12 WBC 11.5 H RBC 3.87 Hgb 10.2 L Hct 31.0 L MCV 80.1 L MCH 26.4 L MCHC 32.9 L RDW 18.5 H Plt Count 329 MPV 9.4 Neut % (Auto) 77.5 H Lymph % (Auto) 8.2 L Osborne % (Auto) 13.0 H Eos % (Auto) 0.8 Baso % (Auto) 0.5 Neut # (Auto) 8.9 H Lymph # (Auto) 0.9 L Osborne # (Auto) 1.5 H Eos # (Auto) 0.1 Baso # (Auto) 0.1 Neutrophils % (Manual) 77 H Band Neutrophils % 8 H Lymphocytes % (Manual) 8 L Reactive Lymphs % 1 H Monocytes % (Manual) 4 Basophils % (Manual) 2 Platelet Estimate Normal Hypochromasia (manual) Slight Anisocytosis (manual) Moderate Sodium 147 Potassium 3.7 Chloride 110 H Carbon Dioxide 24 Anion Gap 16 BUN 12 Creatinine 1.1 Est GFR ( Amer) > 60 Est GFR (Non-Af Amer) 58 Random Glucose 124 H Calcium 9.3 Total Bilirubin 0.4 AST 62 H D ALT 42 Alkaline Phosphatase 59 Total Protein 7.5 Albumin 3.4 L Globulin 4.1 H Albumin/Globulin Ratio 0.8 L Urine Color Yellow Urine Clarity Clear Urine pH 6.0 Ur Specific Semora 1.009 Urine Protein 1+ H Urine Glucose (UA) Normal Urine Ketones Negative Urine Blood 1+ H Urine Nitrate Negative Urine Bilirubin Negative Urine Urobilinogen Normal Ur Leukocyte Esterase 3+ H Urine WBC (Auto) 20 H Urine RBC (Auto) 3 Ur Squamous Epith Cells 13 H Urine Bacteria Rare Assessment & Plan (1) Infection due to ESBL-producing Escherichia coli Status: Acute (2) Kidney stone Status: Acute (3) Pyelonephritis Status: Acute - Assessment and Plan (Free Text) Assessment: cont merrem for 14 days eval and follow up
== END 2017-07-22 22:15 | disposition left against medical advice (07) | DRG 323 ==
LOC: C.ER 08:26 → C.9E 10:30 → C.5S 11:14
PROVIDERS: ADMIT Internal Medicine; ATTEND Internal Medicine
DX: N20.0 Calculus of kidney (principal); N18.9 Chronic kidney disease, unspecified; I12.9 Hypertensive chronic kidney disease with stage 1 through stage 4 chronic kidney disease, or unspecified chronic kidney disease; Z16.12 Extended spectrum beta lactamase (ESBL) resistance; B96.20 Unspecified Escherichia coli [E. coli] as the cause of diseases classified elsewhere

== ENCOUNTER 2017-12-09 10:33 | Emergency (ER) | payer OTHER ==
[2017-12-09 10:33] VITALS: BMI 29.2
[2017-12-09 11:01] VITALS: BP 145/91; PULSE 69; RESP 20; TEMP 98.5; O2SAT 100
--- NOTE | 2017-12-09 11:46 | C.PDOC ---
History Of Present Illness 31 year old female presents to the ED with headache that began today. Patient reports history of migraine headaches. Headache is described as frontal, pressure-like, and associated with mild photophobia. She denies any nausea, vomiting, blurred/double vision, or other associated symptoms. Patient reports she took Tylenol before arrival, and reports improvement. Time Seen by Provider: 12/09/17 11:38 Chief Complaint (Nursing): Headache History Per: Patient History/Exam Limitations: no limitations Onset/Duration Of Symptoms: Hrs Current Symptoms Are (Timing): Still Present Past Medical History Reviewed: Historical Data, Nursing Documentation, Vital Signs Vital Signs: Last Vital Signs Temp 98.5 F 12/09/17 10:58 Pulse 69 12/09/17 10:58 Resp 20 12/09/17 10:58 BP 145/91 H 12/09/17 10:58 Pulse Ox 100 12/09/17 10:58 - Medical History PMH: Anemia, HTN (non compliant), Kidney Stones, Migraine, Chronic Kidney Disease Surgical History: - [facility] Procedures LOW CERVICAL (08/22/13) Family History: States: Unknown Family Hx - Social History Hx Tobacco Use: No Hx Alcohol Use: No Hx Substance Use: No - Immunization History Hx Tetanus Toxoid Vaccination: Yes (2017) Hx Influenza Vaccination: No Hx Pneumococcal Vaccination: No Review Of Systems Except As Marked, All Systems Reviewed And Found Negative. Constitutional: Negative for: Fever, Chills Eyes: Negative for: Vision Change Gastrointestinal: Negative for: Nausea, Vomiting Musculoskeletal: Negative for: Neck Pain, Back Pain Neurological: Positive for: Headache, Other (Photophobia). Negative for: Weakness, Numbness, Incoordination, Change in Speech, Dizziness Physical Exam - Physical Exam Appears: Well, Non-toxic, No Acute Distress Skin: Warm, Dry, No Rash Head: Atraumatic, Normacephalic Eye(s): bilateral: Normal Inspection, PERRL, EOMI Oral Mucosa: Moist Neck: Normal ROM, Supple Chest: Symmetrical Respiratory: No Accessory Muscle Use, Other (No respiratory distress) Extremity: Bilateral: Atraumatic, Normal ROM Neurological/Psych: Oriented x3, Normal Speech, Normal Cranial Nerves, Normal Motor, Normal Sensation Gait: Steady ED Course And Treatment O2 Sat by Pulse Oximetry: 100 (room air) Pulse Ox Interpretation: Normal Medical Decision Making Medical Decision Making: Impression: Migraine headache Plan: Offered pain medication, and patient declined. Plan is to discharge patient home with prescription for Fioricet. Patient requesting work note. Disposition Counseled Patient/Family Regarding: Diagnosis, Need For Followup, Rx Given - Disposition Disposition: HOME/ ROUTINE Disposition Time: 11:43 Condition: GOOD Additional Instructions: Take Motrin or Tylenol for headache every 4-6 hours Can also take Excedrin OTC if you develop increased headache, changes in vision, memory loss, change in balance, nausea/vomiting go to Emergency Room immediately Prescriptions: Acetaminophen/Butalbital/Caf [Fioricet] 1 tab PO TID PRN #20 tab PRN Reason: Headache Instructions: Migraine Headache (DC) Forms: [facility] (Tajik), Work Excuse - POA Present On Arrival: None - Clinical Impression Clinical Impression: Headache, Encounter to obtain excuse from work - PA / [employer] / Resident Statement MD/DO has reviewed & agrees with the documentation as recorded. - Scribe Statement The provider has reviewed the documentation as recorded by the Scribe (Tiffanie Ortiz) All medical record entries made by the Scribe were at my direction and personally dictated by me. I have reviewed the chart and agree that the record accurately reflects my personal performance of the history, physical exam, medical decision making, and the department course for this patient. I have also personally directed, reviewed, and agree with the discharge instructions and disposition.
== END 2017-12-09 11:55 | disposition home or self-care (01) ==
LOC: C.ER 10:33
DX: Z02.79 Encounter for issue of other medical certificate (principal); R51 Headache

== ENCOUNTER 2018-04-13 10:19 | Emergency (ER) | payer MEDICAID ==
[2018-04-13 10:19] VITALS: BMI 29.2
[2018-04-13 10:35] VITALS: RESP 20; O2SAT 99
--- NOTE | 2018-04-13 11:36 | C.PDOC ---
History Of Present Illness 32 y/o female comes to ED for repeat beta and US, per previous instructions. Patient was seen on 04/04/18 and was advised to return 5-7 days. Patient has no new symptoms. Reports she feels fine since prior visit. Denies any bleeding, fever, or UTI symptoms. Time Seen by Provider: 04/13/18 11:08 Chief Complaint (Nursing): Medical Clearance History Per: Patient History/Exam Limitations: no limitations Past Medical History Reviewed: Historical Data, Nursing Documentation, Vital Signs Vital Signs: Last Vital Signs Temp 98.2 F 04/13/18 10:33 Pulse 80 04/13/18 10:33 Resp 20 04/13/18 10:33 BP 145/93 H 04/13/18 10:33 Pulse Ox 99 04/13/18 10:33 - Medical History PMH: Anemia, HTN (non compliant), Kidney Stones, Migraine, Chronic Kidney Disease Surgical History: - [facility] Procedures LOW CERVICAL (08/22/13) Family History: States: No Known Family Hx - Social History Hx Tobacco Use: No Hx Alcohol Use: Yes Hx Substance Use: No - Immunization History Hx Tetanus Toxoid Vaccination: Yes (2017) Hx Influenza Vaccination: Yes (2018) Hx Pneumococcal Vaccination: No Review Of Systems Except As Marked, All Systems Reviewed And Found Negative. Constitutional: Negative for: Fever, Chills Cardiovascular: Negative for: Chest Pain Respiratory: Negative for: Shortness of Breath Gastrointestinal: Negative for: Nausea, Vomiting, Abdominal Pain Genitourinary: Negative for: Dysuria, Hematuria Physical Exam - Physical Exam Appears: Non-toxic, No Acute Distress Skin: Warm, Dry Head: Atraumatic, Normacephalic Eye(s): bilateral: Normal Inspection Oral Mucosa: Moist Neck: Supple Cardiovascular: Rhythm Regular, No Murmur Respiratory: Normal Breath Sounds, No Rales, No Rhonchi, No Wheezing Gastrointestinal/Abdominal: Soft, No Tenderness Extremity: Bilateral: Atraumatic, Normal Color And Temperature, Normal ROM Neurological/Psych: Oriented x3, Normal Speech ED Course And Treatment - Laboratory Results Result Diagrams: 04/13/18 11:46 04/13/18 11:46 O2 Sat by Pulse Oximetry: 99 (RA) Pulse Ox Interpretation: Normal - CT Scan/US Transvaginal US Other Rad Studies (CT/US): Read By Radiologist, Radiology Report Reviewed CT/US Interpretation: Findings: The uterus measures approximately 9.0 x 5.4 x 6.7 cm. Anteverted. 3.5 x 2.5 x 2.5 cm anterior uterine heterogeneous mass consistent with subserosal fibroid. Cervix length measures approximately 3.6 cm. There is a single intrauterine fetus present. 3 mm yolk sac. The gesta tional sac measures 1.3 cm and is compatible with a gestational age of 5 weeks 4 days. The crown-rump length measures 0.3 cm and is compatible with a gestational age of 6 weeks 0 days. There is heart motion which measured 102 BPM. The right ovary measures 3.4 x 2.2 x 3.7 cm with 2.1 x 1.8 x 2.4 cm probable corpus luteal cyst. The left ovary measures 2.7 x 1.6 x 2.1 cm. Blood flow was demonstrated to both ovaries. Impression: Live single intrauterine with estimated gestational age 6 weeks 0 days by crown-rump length calculation and 5 weeks 4 days by gestational sac calculation. heart rate 102 bpm. Advise an anomaly screen at 16-18 weeks gestational age. Probable right ovarian corpus luteal cyst. Medical Decision Making Medical Decision Making: Plan: --Labs --UA --Transvaginal US Disposition Counseled Patient/Family Regarding: Studies Performed, Diagnosis, Need For Followup, Rx Given - Disposition Referrals: [facility] [Outside] [facility] [Outside] [facility] [Outside] Disposition: HOME/ ROUTINE Disposition Time: 12:49 Condition: IMPROVED Additional Instructions: TAKE ANTIBIOTICS PRESCRIBED. FOLLOW UP OBGYN FOR FURTHER TREATMENT. Prescriptions: Nitrofurantoin Macrocrystals [Macrobid] 1 cap PO BID #14 cap Instructions: Urinary Tract Infection, Adult (DC), Threatened Miscarriage (DC) Forms: [facility] (Sri Lankan), Work Excuse - Clinical Impression Clinical Impression: UTI (urinary tract infection) during - Scribe Statement The provider has reviewed the documentation as recorded by the Luis Molina Provider Attestation: All medical record entries made by the Adonisibe were at my direction and personally dictated by me. I have reviewed the chart and agree that the record accurately reflects my personal performance of the history, physical exam, medical decision making, and the department course for this patient. I have also personally directed, reviewed, and agree with the discharge instructions and disposition.
[2018-04-13 11:53] LABS: BASO # 0.1 K/uL (0.0-0.2); BASO % 0.9 % (0.0-2.0); EOS # 0.2 K/uL (0.0-0.7); EOS % 1.2 % (0.0-4.0); HEMOGLOBIN 11.6 g/dL (11.0-16.0); LYMPH # 2.1 K/uL (1.0-4.3); LYMPH % 16.8 % (20.0-40.0); MEAN CELL VOLUME 88.2 fL (81.0-99.0); MEAN CORPUSCULAR HEMOGLOBIN 28.8 pg (27.0-31.0); MEAN CORPUSCULAR HGB CONC 32.7 g/dL (33.0-37.0); MEAN PLATELET VOLUME 8.9 fL (7.2-11.7); MONO # 0.8 K/uL (0.0-0.8); MONO % 6.4 % (0.0-10.0); NEUT # 9.6 K/uL (1.8-7.0); NEUT % 74.7 % (50.0-75.0); RBC 4.03 Mil/uL (3.80-5.20); WHITE BLOOD COUNT 12.8 K/uL (4.8-10.8)
[2018-04-13 12:08] LABS: ALB/GLOB RATIO 1.3 (1.0-2.1); ALBUMIN 4.3 g/dL (3.5-5.0); ALT/SGPT 21 U/L (9-52); AST/SGOT 36 U/L (14-36); BLOOD UREA NITROGEN 12 mg/dL (7-17); CALCIUM 9.1 mg/dl (8.6-10.4); GFR NON-AFRICAN AMERICAN > 60
[2018-04-13 12:15] LABS: SQUAMOUS EPITHIAL 1 /hpf (0-5); URINE BACTERIA MANY (<OCC); URINE BILIRUBIN NEGATIVE (NEGATIVE); URINE BLOOD NEGATIVE (NEGATIVE); URINE CLARITY Clear (Clear); URINE COLOR Yellow (YELLOW); URINE GLUCOSE (UA) NORMAL (Normal); URINE LEUKOCYTE ESTERASE NEG Leu/uL (Negative); URINE PROTEIN 1+ mg/dL (NEGATIVE); URINE UROBILINOGEN NORMAL mg/dL (0.2-1.0)
--- NOTE | 2018-04-13 12:40 | US ---
Date of service: 04/13/2018 Indication: ABD PAIN R/O ECTOPIC Comparison: 1st trimester ultrasound performed 04/04/18 Technique: Transvaginal pelvic ultrasound Findings: The uterus measures approximately 9.0 x 5.4 x 6.7 cm. Anteverted. 3.5 x 2.5 x 2.5 cm anterior uterine heterogeneous mass consistent with subserosal fibroid. Cervix length measures approximately 3.6 cm. There is a single intrauterine fetus present. 3 mm yolk sac. The gestational sac measures 1.3 cm and is compatible with a gestational age of 5 weeks 4 days. The crown-rump length measures 0.3 cm and is compatible with a gestational age of 6 weeks 0 days. There is heart motion which measured 102 BPM. The right ovary measures 3.4 x 2.2 x 3.7 cm with 2.1 x 1.8 x 2.4 cm probable corpus luteal cyst. The left ovary measures 2.7 x 1.6 x 2.1 cm. Blood flow was demonstrated to both ovaries. Impression: Live single intrauterine with estimated gestational age 6 weeks 0 days by crown-rump length calculation and 5 weeks 4 days by gestational sac calculation. heart rate 102 bpm. Advise an anomaly screen at 16-18 weeks gestational age. Probable right ovarian corpus luteal cyst.
[2018-04-13 12:59] VITALS: BP 129/83; PULSE 71; TEMP 98.8
== END 2018-04-13 12:57 | disposition home or self-care (01) ==
LOC: C.ER 10:19
DX: O23.41 Unspecified infection of urinary tract in pregnancy, first trimester (principal); Z3A.01 Less than 8 weeks gestation of pregnancy

== ENCOUNTER 2018-06-15 10:40 | Emergency (ER) | payer OTHER ==
[2018-06-15 10:41] VITALS: BMI 29.2
[2018-06-15 10:53] VITALS: BP 148/93; PULSE 96; RESP 20; TEMP 98.1; O2SAT 97
--- NOTE | 2018-06-15 11:33 | C.PDOC ---
History Of Present Illness 32 y/o female presents to the ER complaining of right hand pain and swelling which has been present for the past 1 day. Patient states that the pain is primarily in the first 3 digits. Patient reports that she has tingling sensation in the digits. 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 She is 16 weeks . Denies having weakness in hand and related issues. Time Seen by Provider: 06/15/18 10:50 Chief Complaint (Nursing): Upper Extremity Problem/Injury History Per: Patient History/Exam Limitations: no limitations Onset/Duration Of Symptoms: Days Current Symptoms Are (Timing): Still Present Severity: Moderate Past Medical History Reviewed: Historical Data, Nursing Documentation, Vital Signs Vital Signs: Last Vital Signs Temp 98.1 F 06/15/18 10:48 Pulse 96 H 06/15/18 10:48 Resp 20 06/15/18 10:48 BP 148/93 H 06/15/18 10:48 Pulse Ox 97 06/15/18 10:48 - Medical History PMH: Anemia, HTN (non compliant), Kidney Stones, Migraine, Chronic Kidney Disease Surgical History: - [facility] Procedures LOW CERVICAL (08/22/13) Family History: States: No Known Family Hx - Social History Hx Tobacco Use: No Hx Alcohol Use: Yes Hx Substance Use: No - Immunization History Hx Tetanus Toxoid Vaccination: Yes (2017) Hx Influenza Vaccination: Yes (2018) Hx Pneumococcal Vaccination: No Review Of Systems Except As Marked, All Systems Reviewed And Found Negative. Musculoskeletal: Positive for: Hand Pain (right hand pain) Neurological: Negative for: Weakness Physical Exam - Physical Exam Appears: Other (mild discomfort) Skin: Normal Color, Warm, Dry Head: Atraumatic, Normacephalic Eye(s): bilateral: Normal Inspection Nose: Normal Oral Mucosa: Moist Neck: Supple Chest: Symmetrical Extremity: Normal ROM, Tenderness (tenderness to palpation over right lateral wrist and lateral hand), Capillary Refill (< 2 seconds), Other (worsening pain with positive phalen's test, no tenderness in right elbow and forearm) Pulses: Right Brachial: Normal, Right Radial: Normal Neurological/Psych: Oriented x3, Normal Speech, Normal Motor, Normal Sensation ED Course And Treatment O2 Sat by Pulse Oximetry: 97 (RA) Pulse Ox Interpretation: Normal Progress Note: Patient treated with Tylenol PO. Removable Splint has been applied by mold technician. Patient has been discharged and follow up with hand surgeon in 1 week. Disposition Counseled Patient/Family Regarding: Diagnosis, Need For Followup, Rx Given - Disposition Referrals: Jose So MD [Staff Provider] - Disposition: HOME/ ROUTINE Disposition Time: 11:30 Condition: STABLE Additional Instructions: FOLLOW UP WITH HAND SURGEON WITHIN 1 WEEK USE TYLENOL NEEDED RETURN TO ER IF SYMPTOMS WORSEN Prescriptions: Acetaminophen [Tylenol 325mg tab] 650 mg PO Q6 PRN #30 tab PRN Reason: pain/fever Instructions: Carpal Tunnel Syndrome (DC) Forms: [facility] (Guinean) Print Language: TUNISIAN - Clinical Impression Clinical Impression: Carpal tunnel syndrome, right - Scribe Statement The provider has reviewed the documentation as recorded by the Adonisibshanice Mandujano Provider Attestation: All medical record entries made by the Adonisibe were at my direction and personally dictated by me. I have reviewed the chart and agree that the record accurately reflects my personal performance of the history, physical exam, medical decision making, and the department course for this patient. I have also personally directed, reviewed, and agree with the discharge instructions and disposition.
== END 2018-06-15 11:45 | disposition home or self-care (01) ==
LOC: C.ER 10:40
DX: O26.832 Pregnancy related renal disease, second trimester (principal); I12.9 Hypertensive chronic kidney disease with stage 1 through stage 4 chronic kidney disease, or unspecified chronic kidney disease; N18.9 Chronic kidney disease, unspecified; O26.892 Other specified pregnancy related conditions, second trimester; G56.01 Carpal tunnel syndrome, right upper limb; Z3A.16 16 weeks gestation of pregnancy